=== PATIENT | female | born 1965 | race Caucasian/White ===

== ENCOUNTER → 2018-07-11 | Outpatient (CLI) | payer BC ==
--- NOTE | 2018-07-11 15:42 | Diagnostic Imaging Report ---
INDICATION: Right foot pain. EXAMINATION: Three views of right foot was obtained. FINDINGS: No fracture, dislocation or other acute abnormalities. Joint spaces are well maintained. IMPRESSION: Negative right foot. Dictated by: Dictated on workstation # [id number]
== END ==
LOC: RAD FS 14:53
PROVIDERS: ATTEND Nurse Practitioner Family
DX: M79.674 Pain in right toe(s) (principal)
CPT/HCPCS: 73630

== ENCOUNTER → 2022-05-30 | Outpatient (CLI) | payer BC ==
[2022-05-30 10:27] VITALS: BP 133/95
--- NOTE | 2022-05-30 10:51 | Cardiology Stress Test Report ---
Stress Test Report Date of Procedure/Referring: Date of Procedure: May 30, 2022 [facility] Admitting Physician Admitting Physician: Attending Physician: Irish Arredondo Aprn Indications: CP Baseline Heart Rate: 69 Baseline Blood Pressure: Blood Pressure Systolic: 133 Blood Pressure Diastolic: 95 Baseline EKG: Baseline EKG: NSR Summary/Conclusion: Summary: In summary, the patient started exercising with a baseline heart rate, blood pressure and EKG mentioned above Patient was able to exercise for a total of 7 minutes on Giuseppe protocol, METs 8.5 Maximum heart rate 164 Maximum blood pressure 168/90 Stress EKG, Minimal nondiagnostic changes Recovery EKG , Return to baseline Conclusion: 1. Good exercise tolerance for a total of 7 minutes on Giuseppe protocol, 8.5 METs, achieving percent of 93 maximum expected heart rate 2. Minimal nondiagnostic EKG changes with exercise returned to baseline during recovery 3. No arrhythmia was noted Copy Copies To 1: [facility] [place], [place] NOELLE KNIGHT MD May 30, 2022 10:51
== END ==
LOC: CARD 08:59
PROVIDERS: ATTEND Nurse Practitioner Family
DX: I35.1 Nonrheumatic aortic (valve) insufficiency (principal)
CPT/HCPCS: 93017; 93306